=== PATIENT | male | born 1990 | race Caucasian/White ===

== ENCOUNTER 2018-06-29 23:04 | Emergency (ER) | payer OTHER ==
[~2018-06-29] VITALS: Ht 180.3 cm; Wt 106.6 kg
[~2018-06-29 23:04] MED LIST: MOTRIN600 MG PO; TRAMADOL HCL50 MG PO
[2018-06-30] MEDS ORDERED: CYCLOBENZAPRINE5 M3 PO (00:08)
== END 2018-06-30 00:15 | disposition home or self-care (01) ==
LOC: ED 23:04
DX: M25.512 Pain in left shoulder (principal); V89.2XXA Person injured in unspecified motor-vehicle accident, traffic, initial encounter; Y93.89 Activity, other specified; Y92.89 Other specified places as the place of occurrence of the external cause; Y99.8 Other external cause status